=== PATIENT | male | born 1940 | race Caucasian/White ===

== ENCOUNTER 2019-01-21 08:25 | Inpatient (IN) | payer MEDICARE ==
[~2019-01-21] VITALS: Ht 182.9 cm; Wt 81.8 kg
[~2019-01-21 08:25] MED LIST: ASPI81TA52 PO; MULT-1085 PO; RED RICE YEAST PO; WARF-55 PO
[2019-01-21 09:17] LABS: BASOPHILS % (AUTO) 0.4 % (0-1); EOSINOPHILS # (AUTO) 0.1 X10'3 (0-0.9); EOSINOPHILS % (AUTO) 1.7 % (0-6); HEMATOCRIT 44.1 % (42.0-52.0); HEMOGLOBIN 15.2 g/dl (14.0-17.9); LYMPHOCYTES # (AUTO) 1.3 X10'3 (1.1-4.8); LYMPHOCYTES % (AUTO) 26.9 % (21-51); MEAN CORPUSCULAR HEMOGLOBIN 32.8 PG (27.0-31.0); MEAN CORPUSCULAR HGB CONC 34.4 g/dL (33.0-36.5); MEAN CORPUSCULAR VOLUME 95.2 FL (78-98); MEAN PLATELET VOLUME 8.6 FL (7.4-10.4); MONOCYTES # (AUTO) 0.4 X10'3 (0-0.9); MONOCYTES % (AUTO) 8.8 % (2-12); NEUTROPHILS % (AUTO) 62.2 % (42-75); PLATELET COUNT 179 X10'3 (140-440); RED BLOOD COUNT 4.63 X10'6 (4.70-6.10); RED CELL DISTRIBUTION WIDTH 14.4 % (11.5-14.5); WHITE BLOOD COUNT 4.9 X10'3 (4.5-11.0)
[2019-01-21 09:33] LABS: ALANINE AMINOTRANSFERASE 22 U/L (12-78); ALBUMIN 3.5 G/DL (3.4-5.0); ALKALINE PHOSPHATASE 71 IU/L (46-116); ANION GAP 6 (8-16); ASPARTATE AMINO TRANSFERASE 21 U/L (10-37); BILIRUBIN,TOTAL 0.6 MG/DL (0.1-1.0); BLOOD UREA NITROGEN 13 MG/DL (7-18); BUN/CREATININE RATIO 12.5 (5.4-32.0); CALCIUM 8.9 MG/DL (8.5-10.1); CHLORIDE 106 MMOL/L (99-107); CREATININE 1.04 MG/DL (0.60-1.10); GLUCOSE 93 MG/DL (70-104); SODIUM 142 MMOL/L (135-145); TOTAL CARBON DIOXIDE 29.6 MMOL/L (24-32); TOTAL PROTEIN 6.9 G/DL (6.4-8.2); eGFR 69 ML/MIN
[2019-01-21 09:35] LABS: PARTIAL THROMBOPLASTIN TIME 40 SECONDS (22-32)
[2019-01-21] MEDS ORDERED: aspirin 81mg tab.chew PO ONE (10:00)
--- NOTE | 2019-01-21 10:02 | NUR ---
TELE NEURO CONSULT INITIATED
--- NOTE | 2019-01-21 10:13 | NUR ---
Teleneuro assessment being performed at this time.
--- NOTE | 2019-01-21 10:19 | NUR ---
Teleneuro assessment complete. Findings to be discussed with provider.
[2019-01-21] MEDS ORDERED: magnesium hydroxide 30ml (MOM) UD suspension PO PRN (10:40)
[2019-01-21] MEDS ORDERED: acetaminophen 325mg tablet PO PRN (10:40)
[2019-01-21] MEDS ORDERED: mag hydrox/Alum hydrox/simeth 30ml oral suspension PO PRN (10:40)
[2019-01-21] MEDS ORDERED: ondansetron/PF 4mg/2ml inj IV PRN (10:40)
[2019-01-21] MEDS ORDERED: iohexol 350MG/ML 100ml bottle IV ONE (10:53)
[2019-01-21] MEDS ORDERED: ESCI20TA PO (11:17)
--- NOTE | 2019-01-21 11:43 | NUR ---
RECEIVED REPORT FROM LENORE CHINO IN ER
[2019-01-21 12:00] VITALS: BP 167/113
[2019-01-21] MEDS: normal saline 1000ml 1,000 ML IV SCH ×2 (12:22→20:38)
[2019-01-21 12:57] LABS: CHOL/HDL RATIO 2.8 (0.00-4.99); CHOLESTEROL 183 MG/DL (0-200); HDL CHOLESTEROL 66 MG/DL (35-60); LDL CHOLESTEROL 107 MG/DL (50-100); TRIGLYCERIDES 55 MG/DL (20-135)
[2019-01-21 18:00] VITALS: BP 166/115
--- NOTE | 2019-01-21 18:14 | NUR ---
gave report to fransico escobar
--- NOTE | 2019-01-21 18:30 | NUR ---
Patient in room [facility]009. I have received report from Lexii GROVER and had the opportunity to ask questions and assume patient care.
[2019-01-21] MEDS ORDERED: warfarin 5mg tablet PO ONE (21:00)
[2019-01-21 22:00] VITALS: BP_SYST 122; BP_SYST 123; BP_SYST 127; BP_DIAS 86; BP_DIAS 90; BP_DIAS 93
[2019-01-22 01:22] VITALS: BP 123/101
[2019-01-22 06:00] VITALS: BP 147/102
--- NOTE | 2019-01-22 06:12 | NUR ---
received report from fransico escobar
--- NOTE | 2019-01-22 06:26 | NUR ---
Problems reprioritized. Patient report given, questions answered & plan of care reviewed with oncoming RN.
[2019-01-22 06:28] LABS: BASOPHILS % (AUTO) 0.5 % (0-1); EOSINOPHILS # (AUTO) 0.1 X10'3 (0-0.9); EOSINOPHILS % (AUTO) 2.2 % (0-6); HEMATOCRIT 42.9 % (42.0-52.0); HEMOGLOBIN 14.6 g/dl (14.0-17.9); LYMPHOCYTES # (AUTO) 1.4 X10'3 (1.1-4.8); MEAN CORPUSCULAR HEMOGLOBIN 32.7 PG (27.0-31.0); MEAN CORPUSCULAR HGB CONC 34.1 g/dL (33.0-36.5); MEAN CORPUSCULAR VOLUME 95.8 FL (78-98); MEAN PLATELET VOLUME 8.7 FL (7.4-10.4); MONOCYTES # (AUTO) 0.5 X10'3 (0-0.9); MONOCYTES % (AUTO) 8.9 % (2-12); NEUTROPHILS # (AUTO) 3.8 X10'3 (1.8-7.7); NEUTROPHILS % (AUTO) 64.4 % (42-75); PLATELET COUNT 166 X10'3 (140-440); RED BLOOD COUNT 4.48 X10'6 (4.70-6.10); RED CELL DISTRIBUTION WIDTH 14.4 % (11.5-14.5); WHITE BLOOD COUNT 5.9 X10'3 (4.5-11.0)
[2019-01-22] MEDS: normal saline 1000ml 1,000 ML IV SCH (06:38)
[2019-01-22 06:48] LABS: ALBUMIN 3.1 G/DL (3.4-5.0); ANION GAP 7 (8-16); BLOOD UREA NITROGEN 11 MG/DL (7-18); BUN/CREATININE RATIO 10.2 (5.4-32.0); CALCIUM 8.4 MG/DL (8.5-10.1); CHLORIDE 108 MMOL/L (99-107); CREATININE 1.08 MG/DL (0.60-1.10); GLUCOSE 88 MG/DL (70-104); POTASSIUM 4.5 MMOL/L (3.5-5.1); SODIUM 143 MMOL/L (135-145); TOTAL CARBON DIOXIDE 27.9 MMOL/L (24-32); eGFR 66 ML/MIN
[2019-01-22 07:00] VITALS: BP_SYST 138; BP_SYST 149; BP_DIAS 100; BP_DIAS 102; BP_DIAS 107
[2019-01-22] MEDS ORDERED: aspirin 81mg tablet.DR PO SCH ×2 (08:00)
[2019-01-22] MEDS ORDERED: citalopram 20mg tablet PO SCH (08:00)
[2019-01-22 10:00] VITALS: BP 117/74
[2019-01-22] MEDS ORDERED: ATOR20TA PO (11:20)
[2019-01-22] MEDS ORDERED: CARV3.12 PO (11:20)
--- NOTE | 2019-01-22 12:00 | NUR ---
pt d/c with instructions, education of d/c instructions, and w/all belongings walking out to private vehicle to go home and f/u w/pcp
[2019-01-22] MEDS ORDERED: warfarin 5mg tablet PO SCH (21:00)
== END 2019-01-22 11:55 | disposition home or self-care (01) | DRG 69 ==
LOC: ER 08:25 → ORTHO 4S 11:58
PROVIDERS: ADMIT Family Medicine; ATTEND Family Medicine
PROC: B3251ZZ Computerized Tomography (CT Scan) of Bilateral Common Carotid Arteries using Low Osmolar Contrast (ICD-10-PCS; principal; 2019-01-21)
PROC: B32G1ZZ Computerized Tomography (CT Scan) of Bilateral Vertebral Arteries using Low Osmolar Contrast (ICD-10-PCS; 2019-01-21)
PROC: B3281ZZ Computerized Tomography (CT Scan) of Bilateral Internal Carotid Arteries using Low Osmolar Contrast (ICD-10-PCS; 2019-01-21)
DX: G45.9 Transient cerebral ischemic attack, unspecified (principal); R27.0 Ataxia, unspecified; I10 Essential (primary) hypertension; R79.89 Other specified abnormal findings of blood chemistry; Z79.01 Long term (current) use of anticoagulants; Z95.0 Presence of cardiac pacemaker; Z95.2 Presence of prosthetic heart valve
CPT/HCPCS: 36415; 70450; 70496; 70498; 71045; 80048; 80053; 80061; 83880; 84484; 85025; 85610; 85730; 87081; 93005; 93306; 97162; 99285; G0378; J7030; Q9967

== ENCOUNTER 2021-12-12 07:05 | Emergency (ER) | payer MEDICARE ==
[~2021-12-12] VITALS: Ht 182.9 cm; Wt 85.7 kg
[~2021-12-12 07:05] MED LIST changes: +ATOR20TA PO; +CARV3.12 PO; +ESCI20TA PO; -MULT-1085 PO; -RED RICE YEAST PO
[2021-12-12 07:44] VITALS: BP 171/114
== END 2021-12-12 09:15 | disposition left against medical advice (07) ==
LOC: ER 07:07
DX: R04.0 Epistaxis (principal); Z53.21 Procedure and treatment not carried out due to patient leaving prior to being seen by health care provider